=== PATIENT | male | born 1970 | race Hispanic/Latino ===

== ENCOUNTER 2017-01-27 20:37 | Emergency (ER) | payer SELFPAY ==
[2017-01-28] MEDS ORDERED: XYLOCAINE 2%/ EPI 1:200,000 INFILTRATI ONE (02:16)
[2017-01-28] MEDS ORDERED: BOOSTRIX IM ONE (02:16)
[2017-01-28] MEDS ORDERED: MOTRIN PO ONE (02:16)
--- NOTE | 2017-01-28 02:21 | Emergency Department Report ---
- General Chief complaint: Extremity Injury, Upper Stated complaint: INFECTION IN RT ARM Time Seen by Provider: 01/28/17 02:08 Source: patient Mode of arrival: Ambulatory Limitations: No Limitations - History of Present Illness Initial comments: This is a 47-year-old male nontoxic, well nourished in appearance, no acute signs of distress the patient to the ED with a boil to right upper arm that started last week. He stated was smaller and is increasing in size. Patient describes pain as 7 out of 10 and sharp. Patient denies any joint swelling, joint redness, fever, chills, nausea, vomiting, chest pain, stiff neck, headache , shortness of breath. He denies any allergies. Does not remember last tetanus shot. Denies Past medical history percent. Patient denies any trauma to area. MD complaint: abscess/boil -: Gradual, week(s) (1) Tetanus Up to Date: no Location: RUE Severity: moderate Severity scale (0 -10): 7 Quality: aching Consistency: constant Improves with: none Worsens with: none Context: none Associated symptoms: denies other symptoms Treatments Prior to Arrival: none - Related Data Home Medications Medication Instructions Recorded Confirmed Last Taken Methadone [Dolophine] 90 mg PO QDAY 12/05/14 12/05/14 Unknown Previous Rx's Medication Instructions Recorded Last Taken Type HYDROcodone/APAP 5-325 [[place] 1 each PO Q6HR PRN #12 tablet 11/21/14 Unknown Rx 5-325 mg TAB] Ibuprofen [Motrin 800 MG tab] 800 mg PO Q8H PRN #30 tablet 11/21/14 Unknown Rx Levofloxacin [Levaquin] 500 mg PO QDAY #10 tablet 11/28/14 Unknown Rx Cephalexin [Keflex] 500 mg PO Q8HR 5 Days 01/28/17 Unknown Rx Ibuprofen [Motrin 600 MG tab] 600 mg PO Q8H PRN #30 tablet 01/28/17 Unknown Rx Allergies Allergy/AdvReac Type Severity Reaction Status Date / Time No Known Allergies Allergy Verified 12/05/14 07:53 Abscess Boil HPI - HPI Chief Complaint: Extremity Injury, Upper Stated Complaint: INFECTION IN RT ARM Time Seen by Provider: 01/28/17 02:08 Home Medications: Home Medications Medication Instructions Recorded Confirmed Last Taken Methadone [Dolophine] 90 mg PO QDAY 12/05/14 12/05/14 Unknown Previous Rx's Medication Instructions Recorded Last Taken Type HYDROcodone/APAP 5-325 [[place] 1 each PO Q6HR PRN #12 tablet 11/21/14 Unknown Rx 5-325 mg TAB] Ibuprofen [Motrin 800 MG tab] 800 mg PO Q8H PRN #30 tablet 11/21/14 Unknown Rx Levofloxacin [Levaquin] 500 mg PO QDAY #10 tablet 11/28/14 Unknown Rx Cephalexin [Keflex] 500 mg PO Q8HR 5 Days 01/28/17 Unknown Rx Ibuprofen [Motrin 600 MG tab] 600 mg PO Q8H PRN #30 tablet 01/28/17 Unknown Rx Allergies/Adverse Reactions: Allergies Allergy/AdvReac Type Severity Reaction Status Date / Time No Known Allergies Allergy Verified 12/05/14 07:53 ED Review of Systems ROS: Stated complaint: INFECTION IN RT ARM Other details as noted in HPI Constitutional: denies: chills, fever Eyes: denies: eye pain, eye discharge, vision change ENT: denies: ear pain, throat pain Respiratory: denies: cough, shortness of breath, wheezing Cardiovascular: denies: chest pain, palpitations Endocrine: no symptoms reported Gastrointestinal: denies: abdominal pain, nausea, diarrhea Genitourinary: denies: urgency, dysuria Musculoskeletal: denies: back pain, joint swelling, arthralgia Skin: denies: rash, lesions Neurological: denies: headache, weakness, paresthesias Psychiatric: denies: anxiety, depression Hematological/Lymphatic: denies: easy bleeding, easy bruising ED Past Medical Hx - Past Medical History Previous Medical History?: Yes Hx Asthma: Yes ("exercise related") Additional medical history: IVDA. Methadone therapy - Surgical History Past Surgical History?: No - Social History Smoking Status: Current Every Day Smoker Substance Use Type: Heroin - Medications Home Medications: Home Medications Medication Instructions Recorded Confirmed Last Taken Type HYDROcodone/APAP 5-325 [[place] 1 each PO Q6HR PRN #12 tablet 11/21/14 12/05/14 Unknown Rx 5-325 mg TAB] Ibuprofen [Motrin 800 MG tab] 800 mg PO Q8H PRN #30 tablet 15 12/05/14 Unknown Rx Levofloxacin [Levaquin] 500 mg PO QDAY #10 tablet 11/28/14 12/05/14 Unknown Rx Methadone [Dolophine] 90 mg PO QDAY 12/05/14 12/05/14 Unknown History Cephalexin [Keflex] 500 mg PO Q8HR 5 Days 01/28/17 Unknown Rx Ibuprofen [Motrin 600 MG tab] 600 mg PO Q8H PRN #30 tablet 01/28/17 Unknown Rx ED Physical Exam - General Limitations: No Limitations General appearance: alert, in no apparent distress - Head Head exam: Present: atraumatic, normocephalic, normal inspection - Eye Eye exam: Present: normal appearance, PERRL, EOMI. Absent: scleral icterus, conjunctival injection, nystagmus, periorbital swelling, periorbital tenderness Pupils: Present: normal accommodation - ENT ENT exam: Present: normal exam, normal orophraynx, mucous membranes moist, TM's normal bilaterally, normal external ear exam - Neck Neck exam: Present: normal inspection, full ROM. Absent: tenderness, meningismus, lymphadenopathy, thyromegaly - Respiratory Respiratory exam: Present: normal lung sounds bilaterally. Absent: respiratory distress, wheezes, rales, rhonchi, stridor, chest wall tenderness, accessory muscle use, decreased breath sounds, prolonged expiratory - Cardiovascular Cardiovascular Exam: Present: regular rate, normal rhythm, normal heart sounds. Absent: bradycardia, tachycardia, irregular rhythm, systolic murmur, diastolic murmur, rubs, gallop - GI/Abdominal GI/Abdominal exam: Present: soft, normal bowel sounds. Absent: distended, tenderness, guarding, rebound, rigid, diminished bowel sounds - Rectal Rectal exam: Present: deferred - Extremities Exam Extremities exam: Present: normal inspection, full ROM, normal capillary refill. Absent: tenderness, pedal edema, joint swelling, calf tenderness - Expanded Upper Extremity Exam Right General: Present: normal inspection Shoulder Exam: Present: normal inspection, full ROM. Absent: tenderness, swelling, abrasion, laceration, ecchymosis, deformity, crepidus, dislocation, erythema, tenderness over AC joint Upper Arm exam: Present: normal inspection, full ROM. Absent: tenderness, swelling, abrasion, laceration, ecchymosis, deformity, crepidus, dislocation, erythema Elbow exam: Present: normal inspection, full ROM. Absent: tenderness, swelling , abrasion, laceration, ecchymosis, deformity, crepidus, dislocation, erythema, effusion, pain w/ pronation/supination, tenderness over radial head Forearm Wrist exam: Present: normal inspection, full ROM, tenderness, swelling, other (4 cm abscess to proximal forearm anterior. Postive fluctance noted. No pus or driange noted. Tender to touch. No surrounding cellulitis noted.). Absent: abrasion, laceration, ecchymosis, deformity, crepidus, dislocation, erythema, tenderness over anatomical snuff box, pain with axial thumb loading Hand Wrist exam: Present: normal inspection, full ROM. Absent: tenderness, swelling, abrasion, laceration, ecchymosis, deformity, crepidus, dislocation, erythema, amputation, nail avulsion, subungual hematoma Neuro motor exam: Present: wrist extension intact, thumb opposition intact, thumb IP flexion intact, thumb adduction intact, fingers 2-5 abduction intact Neurosensory exam: Present: 2-point discrimination, radial nerve intact, ulnar nerve intact, median nerve intact Vascular: Present: vascular compromise, normal capillary refill, radial pulse, brachial pulse, ulnar pulse - Back Exam Back exam: Present: normal inspection, full ROM. Absent: tenderness, CVA tenderness (R), CVA tenderness (L), muscle spasm, paraspinal tenderness, vertebral tenderness, rash noted - Neurological Exam Neurological exam: Present: alert, oriented X3, CN II-XII intact, normal gait, reflexes normal - Psychiatric Psychiatric exam: Present: normal affect, normal mood - Skin Skin exam: Present: warm, dry, intact, normal color. Absent: rash ED Course Vital Signs 01/27/17 01/27/17 22:00 22:08 Temperature 98 F 98.5 F Pulse Rate 87 87 Respiratory 18 18 Rate Blood Pressure 118/71 Blood Pressure 118/71 [Left] O2 Sat by Pulse 96 96 Oximetry - Reevaluation(s) Reevaluation #1: 01/28/17 02:22 Patient is able to speak full sentence with no signs of distress noted. - I & D Right Anterior Proximal Arm Type of Procedure: Complex Site: right proximal anterior forearm Blade Size: 11 I & D Procedure: betadine prep, sterile drapes applied, sterile dressing applied Progress: Under sterile field, I used Betadine to cleanse the area. I then used 2% lidocaine with epi 1-200,000 5/8 needle to inject area for anesthetic purposes. Total volume injected 3 mL. I then used an 11 blade to make a 2 cm incision. About 4 mL's of purulent drainage has been noted. I then used a hemostat to break the abscess formation. I then used sterile 0.9% normal saline flush to flush the wound with total volume of 40 mL used. I then put a 1/4 iodoform packing to the incision. A sterile 4 x 4 with tape has been applied as dressing. Bleeding is under control. Patient tolerated the procedure well with no signs of distress noted. ED Medical Decision Making - Medical Decision Making Ed course: This is a 47-year-old male that assessment abscess 1- patient was examined by myself. I/D has been performed and patient was instructed to return in 2 days for packing removal. 2- patient received Keflex at discharge 3-patient was instructed follow-up with her primary care doctor in 3-5 days or symptoms such as numbness, tingling, fever, chills, chest pain, shortness of breath return to emergency room as was possible. 4- At time time of discharge, the patient does not seem toxic or ill in appearance. No acute signs of distress noted. Patient agrees to discharge treatment plan of care. No further questions noted by the patient. Critical care attestation.: If time is entered above; I have spent that time in minutes in the direct care of this critically ill patient, excluding procedure time. ED Disposition Clinical Impression: Abscess Disposition: DC-01 TO HOME OR SELFCARE Is pt being admited?: No Does the pt Need Aspirin: No Condition: Stable Instructions: Cephalexin (By mouth), Ibuprofen (By mouth), Abscess Incision and Drainage (ED), Acute Wound Care (ED), Incision and Drainage (ED) Additional Instructions: Return to the emergency room in 2 days for packing removal and reassessment of wound. follow-up with your primary care doctor in 3-5 days or symptoms such as numbness , tingling, fever, chills, chest pain, shortness of breath return to emergency room as was possible. Take full course of antibiotics Prescriptions: Cephalexin [Keflex] 500 mg PO Q8HR 5 Days Ibuprofen [Motrin 600 MG tab] 600 mg PO Q8H PRN #30 tablet PRN Reason: Pain Referrals: PRIMARY CARE, [Primary Care Provider] - 3-5 Days SATCHER,FLASH, MD [Staff Physician] - 3-5 Days [facility] [Outside] - 3-5 Days [facility] [Outside] - 3-5 Days Forms: Work/School Release Form(ED)
[2017-01-28] MEDS ORDERED: XYLOCAINE 2%/EPI 1:100,000 INFILTRATI ONE (02:35)
[2017-01-28 05:32] VITALS: BP 111/63
== END 2017-01-28 04:15 | disposition home or self-care (01) ==
LOC: ED 20:37
DX: L02.413 Cutaneous abscess of right upper limb (principal); J45.909 Unspecified asthma, uncomplicated; F17.200 Nicotine dependence, unspecified, uncomplicated; F11.90 Opioid use, unspecified, uncomplicated
CPT/HCPCS: 90471; 90715

== ENCOUNTER 2017-01-30 21:46 | Emergency (ER) | payer SELFPAY ==
[2017-01-30 22:59] VITALS: BP 125/65
[2017-01-31] MEDS ORDERED: TRIPLE ANTIBIOTIC TP ONE ×2 (02:10→02:15)
[2017-01-31] MEDS ORDERED: SILVER NITRATE TP ONE ×2 (02:10→02:18)
--- NOTE | 2017-01-31 02:45 | Emergency Department Report ---
HPI - General Chief Complaint: Skin/Abscess/Foreign Body Time Seen by Provider: 01/31/17 02:37 - HPI HPI: Patient is a 47-year-old who was seen here about 3 days ago for an abscess drainage and is here for wound check He is following instructions as given and keep you try taking his antibiotics. He denies any fever/chills/nausea vomiting or any other problems. ED Past Medical Hx - Past Medical History Previous Medical History?: Yes Hx Asthma: Yes ("exercise related") Additional medical history: IVDA. Methadone therapy - Surgical History Past Surgical History?: No - Social History Smoking Status: Current Every Day Smoker Substance Use Type: None - Medications Home Medications: Home Medications Medication Instructions Recorded Confirmed Last Taken Type HYDROcodone/APAP 5-325 [[place] 1 each PO Q6HR PRN #12 tablet 11/21/14 12/05/14 Unknown Rx 5-325 mg TAB] Levofloxacin [Levaquin] 500 mg PO QDAY #10 tablet 11/28/14 12/05/14 Unknown Rx Methadone [Dolophine] 90 mg PO QDAY 12/05/14 12/05/14 Unknown History Cephalexin [Keflex] 500 mg PO Q8HR 5 Days 01/28/17 Unknown Rx Ibuprofen [Motrin 600 MG tab] 600 mg PO Q8H PRN #30 tablet 01/28/17 Unknown Rx Clindamycin [Clindamycin CAP] 300 mg PO BID #12 cap 01/31/17 Unknown Rx Ibuprofen [Motrin 800 MG tab] 800 mg PO Q8H PRN #30 tablet 01/31/17 Unknown Rx ED Review of Systems ROS: Stated complaint: PACKING REMOVAL Other details as noted in HPI Constitutional: denies: chills, fever Eyes: denies: eye pain, eye discharge, vision change ENT: denies: ear pain, throat pain Respiratory: denies: cough, shortness of breath, wheezing Cardiovascular: denies: chest pain, palpitations Endocrine: no symptoms reported Gastrointestinal: denies: abdominal pain, nausea, diarrhea Genitourinary: denies: urgency, dysuria Musculoskeletal: denies: back pain, joint swelling, arthralgia Skin: denies: rash, lesions Neurological: denies: headache, weakness, paresthesias Psychiatric: denies: anxiety, depression Hematological/Lymphatic: denies: easy bleeding, easy bruising Physical Exam - Physical Exam Vital Signs: Vital Signs 01/30/17 22:00 Temperature 99.3 F Pulse Rate 81 Respiratory 18 Rate Blood Pressure 125/65 [Right] O2 Sat by Pulse 97 Oximetry Physical Exam: GENERAL: Alert and oriented x3, no apparent distress, Normal Gait, atraumatic. HEAD: Head is normocephalic and a-traumatic. LUNGS: Symetrical with respiration, No wheezing, no rales or crackles, CTAB. HEART: S1, S2 present, regular rate and rhythm without murmur, no rubs, no gallops. Non tender to palpation EXTREMITIES/MUSCULOSKELETAL: No cyanosis, clubbing, rash, lesions or edema. Full ROM bilaterally. UE Pulses 2+ bilaterally. Gauze packing was removed, 1 cm open wound seen on right proximal arm anteriorly. Minimal bleeding but controlled, no wound dehiscence, wound was cleaned. SKIN: Warm and dry, No lesions, No ulceration or induration present. ED Course Vital Signs 01/30/17 22:00 Temperature 99.3 F Pulse Rate 81 Respiratory 18 Rate Blood Pressure 125/65 [Right] O2 Sat by Pulse 97 Oximetry ED Medical Decision Making - Medical Decision Making 47-year-old presents with wound check and packing removal ED course: Wound was cleaned discussed the patient to keep wound clean and dry discussed keep dressing and change dressing daily. Discussed with the patient to follow-up with primary care physician 3-5 days to monitor the discussed acute wound care. Patient sent him on some Motrin and clindamycin for coverage Patient is illiterate 3, vital signs are normal he is in no acute distress Critical care attestation.: If time is entered above; I have spent that time in minutes in the direct care of this critically ill patient, excluding procedure time. ED Disposition Clinical Impression: Wound check, abscess Disposition: DC-01 TO HOME OR SELFCARE Is pt being admited?: No Does the pt Need Aspirin: No Condition: Stable Instructions: Acute Wound Care (ED) Additional Instructions: Following instructions as given. Take your medications as prescribed. If any worsening symptoms return to ED She follow up with primary care physician in 3-5 days Prescriptions: Clindamycin [Clindamycin CAP] 300 mg PO BID #12 cap Ibuprofen [Motrin 800 MG tab] 800 mg PO Q8H PRN #30 tablet PRN Reason: Pain Referrals: PRIMARY CARE, [Primary Care Provider] - 3-5 Days [facility] [Outside] - 3-5 Days [facility] [Outside] - 3-5 Days [facility] [Outside] - 3-5 Days Forms: Accompanied Note, Work/School Release Form(ED) Time of Disposition: 02:43
== END 2017-01-31 03:05 | disposition home or self-care (01) ==
LOC: ED 21:46
DX: Z48.01 Encounter for change or removal of surgical wound dressing (principal); J45.909 Unspecified asthma, uncomplicated; F17.200 Nicotine dependence, unspecified, uncomplicated
CPT/HCPCS: A6250

== ENCOUNTER 2017-12-14 15:34 | Emergency (ER) | payer OTHER ==
[2017-12-14 15:55] VITALS: BP 117/65
[2017-12-14] MEDS ORDERED: MOTRIN PO ONE (16:10)
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
== END 2017-12-14 18:02 | disposition home or self-care (01) ==
LOC: ED 15:34
DX: S39.012A Strain of muscle, fascia and tendon of lower back, initial encounter (principal); S13.4XXA Sprain of ligaments of cervical spine, initial encounter; J45.909 Unspecified asthma, uncomplicated; F17.200 Nicotine dependence, unspecified, uncomplicated; V49.49XA Driver injured in collision with other motor vehicles in traffic accident, initial encounter; Y93.89 Activity, other specified; Y99.8 Other external cause status; Y92.488 Other paved roadways as the place of occurrence of the external cause
CPT/HCPCS: 72040; 72100

== ENCOUNTER 2018-02-17 01:52 | Emergency (ER) | payer SELFPAY ==
[2018-02-17] MEDS ORDERED: NARCAN 0.4 MG/1 ML IV ONE (02:36)
[2018-02-17] MEDS ORDERED: ZOFRAN IV ONE ×2 (02:36→03:05)
[2018-02-17] MEDS ORDERED: NACL 0.9% 1000 ML 1,000 ML IV ONE (02:36)
--- NOTE | 2018-02-17 02:42 | Emergency Department Report ---
ED General Adult HPI - General Chief complaint: Overdose Stated complaint: HEROINE USAGE,SYNCOPE Time Seen by Provider: 02/17/18 02:26 Source: patient, EMS Mode of arrival: Ambulatory Limitations: No Limitations - History of Present Illness Initial comments: Patient is 48 years old male with no significant past medical history except for drug abuse. Patient brought to the ER via ambulance after patient took some heroine and he started getting dizzy. Patient denied any suicidal attempts or suicidal thoughts. He stated that he does feel drowsy. Patient denied any headache, chest pain, shortness of breath, nausea or vomiting. - Related Data Home Medications Medication Instructions Recorded Confirmed Last Taken Methadone [Dolophine] 90 mg PO QDAY 12/05/14 12/05/14 Unknown Previous Rx's Medication Instructions Recorded Last Taken Type HYDROcodone/APAP 5-325 [[place] 1 each PO Q6HR PRN #12 tablet 11/21/14 Unknown Rx 5-325 mg TAB] levoFLOXacin [Levaquin] 500 mg PO QDAY #10 tablet 11/28/14 Unknown Rx Ibuprofen [Motrin 600 MG tab] 600 mg PO Q8H PRN #30 tablet 01/28/17 Unknown Rx cephALEXin [Keflex] 500 mg PO Q8HR 5 Days cap 01/28/17 Unknown Rx Clindamycin [Clindamycin CAP] 300 mg PO BID #12 cap 01/31/17 Unknown Rx Ibuprofen [Motrin 800 MG tab] 800 mg PO Q8H PRN #30 tablet 01/31/17 Unknown Rx Cyclobenzaprine [Flexeril] 10 mg PO QHS PRN #7 tablet 12/14/17 Unknown Rx Ibuprofen [Motrin] 600 mg PO Q8H PRN #30 tablet 12/14/17 Unknown Rx Allergies Allergy/AdvReac Type Severity Reaction Status Date / Time No Known Allergies Allergy Verified 12/05/14 07:53 ED Review of Systems ROS: Stated complaint: HEROINE USAGE,SYNCOPE Other details as noted in HPI Comment: All other systems reviewed and negative Constitutional: denies: chills, fever Respiratory: denies: cough, orthopnea, shortness of breath, SOB with exertion, SOB at rest, wheezing Cardiovascular: denies: chest pain, palpitations, dyspnea on exertion Gastrointestinal: denies: abdominal pain, nausea, vomiting, diarrhea, constipation, hematemesis, hematochezia Musculoskeletal: denies: back pain Neurological: denies: headache, weakness ED Past Medical Hx - Past Medical History Previous Medical History?: Yes Hx Asthma: Yes ("exercise related") Additional medical history: IVDA. Methadone therapy - Surgical History Past Surgical History?: No Additional Surgical History: none - Social History Smoking Status: Current Every Day Smoker Substance Use Type: Cocaine, Heroin - Medications Home Medications: Home Medications Medication Instructions Recorded Confirmed Last Taken Type HYDROcodone/APAP 5-325 [[place] 1 each PO Q6HR PRN #12 tablet 11/21/14 12/05/14 Unknown Rx 5-325 mg TAB] levoFLOXacin [Levaquin] 500 mg PO QDAY #10 tablet 11/28/14 12/05/14 Unknown Rx Methadone [Dolophine] 90 mg PO QDAY 12/05/14 12/05/14 Unknown History Ibuprofen [Motrin 600 MG tab] 600 mg PO Q8H PRN #30 tablet 01/28/17 Unknown Rx cephALEXin [Keflex] 500 mg PO Q8HR 5 Days cap 01/28/17 Unknown Rx Clindamycin [Clindamycin CAP] 300 mg PO BID #12 cap 01/31/17 Unknown Rx Ibuprofen [Motrin 800 MG tab] 800 mg PO Q8H PRN #30 tablet 01/31/17 Unknown Rx Cyclobenzaprine [Flexeril] 10 mg PO QHS PRN #7 tablet 12/14/17 Unknown Rx Ibuprofen [Motrin] 600 mg PO Q8H PRN #30 tablet 12/14/17 Unknown Rx ED Physical Exam - General Limitations: No Limitations General appearance: appears intoxicated, obtunded - Head Head exam: Present: atraumatic, normocephalic, normal inspection - Eye Eye exam: Present: normal appearance, PERRL - ENT ENT exam: Present: normal exam, normal orophraynx, mucous membranes moist - Neck Neck exam: Present: normal inspection, full ROM. Absent: tenderness, meningismus, lymphadenopathy, thyromegaly - Respiratory Respiratory exam: Present: normal lung sounds bilaterally - Cardiovascular Cardiovascular Exam: Present: regular rate, normal rhythm, normal heart sounds - GI/Abdominal GI/Abdominal exam: Present: soft, normal bowel sounds. Absent: distended, tenderness, guarding, rebound, rigid, organomegaly, mass, bruit, pulsatile mass , hernia - Extremities Exam Extremities exam: Present: normal inspection, full ROM, normal capillary refill - Back Exam Back exam: Present: normal inspection, full ROM. Absent: tenderness, CVA tenderness (R), CVA tenderness (L), muscle spasm, paraspinal tenderness, vertebral tenderness, rash noted - Neurological Exam Neurological exam: Present: alert, oriented X3, CN II-XII intact, normal gait, reflexes normal - Psychiatric Psychiatric exam: Present: normal mood. Absent: depressed, agitated, anxious, flat affect, manic, homicidal ideation, suicidal ideation - Skin Skin exam: Present: warm, intact, normal color ED Course Vital Signs 02/17/18 02/17/18 02/17/18 02:14 02:15 02:20 Temperature 97.7 F Pulse Rate 52 L 54 L 56 L Respiratory 8 L 11 L 11 L Rate Blood Pressure 112/54 112/54 O2 Sat by Pulse 95 92 95 Oximetry 02/17/18 02/17/18 02/17/18 02:30 02:45 03:00 Temperature Pulse Rate 53 L 57 L 50 L Respiratory 10 L 8 L 10 L Rate Blood Pressure 102/46 102/46 106/45 O2 Sat by Pulse 92 94 94 Oximetry 02/17/18 02/17/18 02/17/18 03:15 03:30 03:45 Temperature Pulse Rate 99 H 90 90 Respiratory 26 H 32 H 17 Rate Blood Pressure 175/104 179/98 157/88 O2 Sat by Pulse 94 93 92 Oximetry 02/17/18 02/17/18 02/17/18 04:00 04:15 04:30 Temperature Pulse Rate 79 73 64 Respiratory 33 H 24 24 Rate Blood Pressure 187/88 146/91 136/74 O2 Sat by Pulse 90 94 96 Oximetry 02/17/18 02/17/18 02/17/18 04:45 05:00 05:15 Temperature Pulse Rate 62 61 60 Respiratory 19 17 14 Rate Blood Pressure 132/73 114/58 118/55 O2 Sat by Pulse 96 97 97 Oximetry 02/17/18 02/17/18 02/17/18 05:30 05:45 06:00 Temperature Pulse Rate 56 L 70 63 Respiratory 13 13 13 Rate Blood Pressure 125/59 119/59 121/68 O2 Sat by Pulse 97 97 97 Oximetry 02/17/18 02/17/18 02/17/18 06:15 06:30 06:45 Temperature Pulse Rate 60 56 L 59 L Respiratory 11 L 11 L 11 L Rate Blood Pressure 116/62 104/53 103/57 O2 Sat by Pulse 97 97 97 Oximetry 02/17/18 02/17/18 02/17/18 07:00 07:15 07:30 Temperature Pulse Rate 54 L 72 50 L Respiratory 13 13 10 L Rate Blood Pressure 106/50 114/57 109/55 O2 Sat by Pulse 97 98 98 Oximetry 02/17/18 02/17/18 02/17/18 07:45 08:00 08:15 Temperature Pulse Rate 69 70 53 L Respiratory 11 L 9 L 8 L Rate Blood Pressure 107/56 108/59 114/55 O2 Sat by Pulse 98 97 97 Oximetry 02/17/18 02/17/18 02/17/18 08:30 08:45 09:00 Temperature Pulse Rate 52 L 53 L 52 L Respiratory 7 L 7 L 8 L Rate Blood Pressure 95/46 97/48 97/52 O2 Sat by Pulse 97 97 98 Oximetry 02/17/18 09:15 Temperature Pulse Rate 59 L Respiratory 8 L Rate Blood Pressure 121/74 O2 Sat by Pulse 97 Oximetry - Reevaluation(s) Reevaluation #1: 02/17/18 05:28 Patient is alert and oriented 3 in no acute distress. Vital signs stable with an oxygen saturation of 100% and a respiratory rate of 16 breaths per minute. ED Medical Decision Making - Lab Data Result diagrams: 02/17/18 02:46 02/17/18 02:46 - Medical Decision Making Patient is 48 years old male with no significant past medical history except for heroine abuse. Patient presented to the ER with recent heroine ingestion. Patient denied any suicidal attempt or suicidal thoughts he stated that he just wanted to get high. Patient does not want drug rehabilitation I believe the patient can be discharged home as soon as he is sober. Critical care attestation.: If time is entered above; I have spent that time in minutes in the direct care of this critically ill patient, excluding procedure time. ED Disposition Clinical Impression: Heroin abuse Disposition: DC-01 TO HOME OR SELFCARE Is pt being admited?: No Condition: Stable Instructions: Narcotic Abuse (ED) Referrals: PRIMARY CARE, [Primary Care Provider] - 3-5 Days
[2018-02-17] MEDS ORDERED: NARCAN 2 MG/2 ML ONE (03:04)
[2018-02-17 03:10] LABS: Basophils % (Auto) 0.5 % (0.0-1.8); Eosinophils # (Auto) 0.2 K/mm3 (0.0-0.4); Eosinophils % (Auto) 2.2 % (0.0-4.3); Hematocrit 34.8 % (35.5-45.6); Hemoglobin 11.2 gm/dl (11.8-15.2); Lymphocytes # (Auto) 2.7 K/mm3 (1.2-5.4); Lymphocytes % (Auto) 36.5 % (13.4-35.0); Mean Corpuscular HGB Conc 32 % (32-34); Mean Corpuscular Volume 79 fl (84-94); Monocytes # (Auto) 0.5 K/mm3 (0.0-0.8); Monocytes % (Auto) 6.4 % (0.0-7.3); Platelet Count 166 K/mm3 (140-440); Red Blood Count 4.41 M/mm3 (3.65-5.03); Red Cell Distribution Width 15.7 % (13.2-15.2)
[2018-02-17 03:23] LABS: Mean Corpuscular Hemoglobin 25 pg (28-32)
[2018-02-17 03:26] LABS: Alanine Aminotransferase 7 units/L (7-56); Albumin 3.6 g/dL (3.9-5); BUN/Creatinine Ratio 17; Blood Urea Nitrogen 12 mg/dL (9-20); Calcium 8.6 mg/dL (8.4-10.2); Hemolysis Index 15
[2018-02-17 04:57] LABS: Mucus,Urine FEW /HPF
[2018-02-17 05:01] LABS: Bilirubin,Urine Negative (Negative); Blood,Urine Negative (Negative); Color,Urine Yellow (Yellow); Urobilinogen,Urine < 2.0 mg/dL (<2.0)
[2018-02-17 05:02] LABS: Amphetamine Screen,Urine PRESUMPTIVE NEGATIVE; Benzodiazepines Screen,Urine PRESUMPTIVE NEGATIVE; Cannabinoid Screen,Urine PRESUMPTIVE NEGATIVE; Cocaine Screen,Urine PRESUMPTIVE NEGATIVE; Opiate Screen,Urine PRESUMPTIVE NEGATIVE
[2018-02-17 05:27] LABS: Methadone Screen,Urine PRESUMPTIVE POSITIVE
[2018-02-17 09:24] VITALS: BP 121/74
== END 2018-02-17 07:00 | disposition home or self-care (01) ==
LOC: ED 01:52
DX: F11.10 Opioid abuse, uncomplicated (principal); F14.10 Cocaine abuse, uncomplicated; J45.909 Unspecified asthma, uncomplicated; F17.200 Nicotine dependence, unspecified, uncomplicated
CPT/HCPCS: 36415; 80053; 80307; 81001; 85025; 96361; 96374; 96375; 99284; G0480; J2310; J2405; J7030; 80320